=== PATIENT | female | born 1960 | race Caucasian/White ===

== ENCOUNTER → 2018-04-11 15:57 | Outpatient (CLI) | payer BC, SELFPAY ==
[2018-04-11 17:16] LABS: Cholesterol 191 mg/dL (140-199); HDL Cholesterol 44 mg/dL (40-60); LDL Cholesterol Calculated 86 mg/dL (<100); Triglycerides 305 mg/dL (35-150)
[2018-04-11 18:38] LABS: Hemoglobin A1C% w Est Avg Glu 6.2 % (4.0-6.0)
== END ==
PROVIDERS: PCP Family Medicine; Visit Provider Family Medicine
DX: E11.9 Type 2 diabetes mellitus without complications (principal)
CPT/HCPCS: 36415; 80061; 83036

== ENCOUNTER → 2018-06-25 14:18 | Outpatient (CLI) | payer BC, SELFPAY ==
[2018-06-25 15:03] LABS: Alanine Aminotransferase 39 IU/L (9-52); Albumin Globulin Ratio 1.3 (1.0-2.8); Alkaline Phosphatase 77 U/L (38-126); Aspartate Aminotransferase 32 IU/L (14-36); Bilirubin Total 0.4 mg/dL (0.2-1.3); Blood Urea Nitrogen 14 mg/dL (7-17); Calcium 9.7 mg/dL (8.4-10.2); Carbon Dioxide 33 mmol/L (22-32); Chloride 99 mmol/L (98-107); Estimated Glomerular Filt Rate > 60.0 mL/min (>60); Glucose 181 mg/dL (80-110); HEMOLYSIS < 15 (0-50); Potassium 3.5 mmol/L (3.4-5.1); Sodium 138 mmol/L (137-145)
[2018-06-25 15:08] LABS: Add Manual Diff / Slide Review NO; Basophils Percent Auto 1.5 % (0-2); Eosinophils Percent Auto 2.3 % (2-4); Hematocrit 36.3 % (36-46); Hemoglobin 11.9 g/dL (12.0-16.0); Lymphocytes Percent Auto 16.8 % (25-40); Mean Corpuscular HGB Conc 32.9 % (30-36); Mean Corpuscular Hemoglobin 27.1 PG (26-34); Mean Corpuscular Volume 82.5 fL (80-100); Monocytes Percent Auto 6.7 % (3-14); Neutrophils Absolute Auto 6100 /uL (3000-5900); Neutrophils Percent Auto 72.7 % (50-75); Platelet Count 289 X10^3/uL (150-400); Red Cell Distribution Width 15.6 % (11.6-14.8); White Blood Cell Count 8.4 X10^3/uL (4.5-11.0)
== END ==
PROVIDERS: PCP Family Medicine; Visit Provider Internal Medicine Rheumatology
DX: M05.79 Rheumatoid arthritis with rheumatoid factor of multiple sites without organ or systems involvement (principal); Z79.899 Other long term (current) drug therapy
CPT/HCPCS: 36415; 80053; 85025

== ENCOUNTER → 2018-08-15 14:57 | Outpatient (CLI) | payer BC, SELFPAY ==
[2018-08-16 17:23] LABS: Creatinine Urine Random 80.8 mg/dL
[2018-08-16 17:31] LABS: Microalbumi Creatinin Ratio Ur 14.8 ug/mg CR (<30); Microalbumin Urine Random 1.2 mg/dL (0-1.6)
== END ==
PROVIDERS: PCP Family Medicine; Visit Provider Family Medicine
DX: E11.9 Type 2 diabetes mellitus without complications (principal)
CPT/HCPCS: 36415; 82043; 82570; 83036

== ENCOUNTER → 2018-09-24 12:37 | Outpatient (CLI) | payer BC, SELFPAY ==
[2018-09-24 13:30] LABS: Add Manual Diff / Slide Review NO; Basophils Percent Auto 1.5 % (0-2); Eosinophils Percent Auto 1.6 % (2-4); Hematocrit 36.9 % (36-46); Hemoglobin 12.2 g/dL (12.0-16.0); Lymphocytes Percent Auto 23.3 % (25-40); Mean Corpuscular HGB Conc 33.2 % (30-36); Mean Corpuscular Hemoglobin 27.3 PG (26-34); Mean Corpuscular Volume 82.4 fL (80-100); Monocytes Percent Auto 6.4 % (3-14); Neutrophils Absolute Auto 4800 /uL (3000-5900); Neutrophils Percent Auto 67.2 % (50-75); Platelet Count 323 X10^3/uL (150-400); Red Blood Cell Count 4.48 X10^6/uL (4.0-5.2); Red Cell Distribution Width 14.4 % (11.6-14.8); White Blood Cell Count 7.2 X10^3/uL (4.5-11.0)
[2018-09-24 13:42] LABS: Alanine Aminotransferase 38 IU/L (9-52); Albumin Globulin Ratio 1.5 (1.0-2.8); Alkaline Phosphatase 77 U/L (38-126); Aspartate Aminotransferase 25 IU/L (14-36); Bilirubin Total 0.3 mg/dL (0.2-1.3); Blood Urea Nitrogen 18 mg/dL (7-17); Calcium 9.7 mg/dL (8.4-10.2); Carbon Dioxide 30 mmol/L (22-32); Chloride 101 mmol/L (98-107); Estimated Glomerular Filt Rate > 60.0 mL/min (>60); Globulin 2.7 g/dL (1.7-4.1); Glucose 122 mg/dL (80-110); HEMOLYSIS < 15 (0-50); Potassium 3.9 mmol/L (3.4-5.1); Sodium 143 mmol/L (137-145); Total Protein 6.7 g/dL (6.3-8.2)
== END ==
PROVIDERS: Family Provider Family Medicine; PCP Family Medicine; Visit Provider Internal Medicine Rheumatology
DX: M05.79 Rheumatoid arthritis with rheumatoid factor of multiple sites without organ or systems involvement (principal); Z79.899 Other long term (current) drug therapy
CPT/HCPCS: 36415; 80053; 85025

== ENCOUNTER → 2018-12-05 17:10 | Outpatient (CLI) | payer BC, SELFPAY ==
[2018-12-05 18:19] LABS: Hemoglobin A1C% w Est Avg Glu 5.8 % (4.0-6.0)
[2018-12-05 18:57] LABS: Creatinine Urine Random 54.2 mg/dL
[2018-12-05 19:02] LABS: Microalbumi Creatinin Ratio Ur 22.1 ug/mg CR (<30); Microalbumin Urine Random 1.2 mg/dL (0-1.6)
== END ==
PROVIDERS: Family Provider Family Medicine; PCP Family Medicine; Visit Provider Family Medicine
DX: E11.9 Type 2 diabetes mellitus without complications (principal)
CPT/HCPCS: 36415; 82043; 82570; 83036

== ENCOUNTER → 2019-01-10 10:33 | Outpatient (CLI) | payer BC, SELFPAY ==
[2019-01-10 11:18] LABS: Add Manual Diff / Slide Review NO; Basophils Absolute Auto 100 /uL (0-100); Basophils Percent Auto 1.2 % (0-2); Eosinophils Absolute Auto 400 /uL (0-450); Eosinophils Percent Auto 4.1 % (2-4); Hematocrit 40.7 % (36-46); Hemoglobin 13.5 g/dL (12.0-16.0); Lymphocytes Absolute Auto 3100 /uL (1100-4500); Lymphocytes Percent Auto 33.7 % (25-40); Mean Corpuscular HGB Conc 33.2 % (30-36); Mean Corpuscular Hemoglobin 27.7 PG (26-34); Mean Corpuscular Volume 83.4 fL (80-100); Monocytes Absolute Auto 800 /uL (0-900); Monocytes Percent Auto 8.9 % (3-14); Neutrophils Absolute Auto 4800 /uL (1500-7000); Neutrophils Percent Auto 52.1 % (50-75); Platelet Count 229 X10^3/uL (150-400); Red Blood Cell Count 4.88 X10^6/uL (4.0-5.2); Red Cell Distribution Width 14.3 % (11.6-14.8); White Blood Cell Count 9.2 X10^3/uL (4.5-11.0)
[2019-01-10 11:31] LABS: Alanine Aminotransferase 36 IU/L (9-52); Albumin 4.2 g/dL (3.5-5.0); Albumin Globulin Ratio 1.5 (1.0-2.8); Alkaline Phosphatase 77 U/L (38-126); Aspartate Aminotransferase 26 IU/L (14-36); BUN Creatinine Ratio 23.8 (6-22); Bilirubin Total 0.4 mg/dL (0.2-1.3); Blood Urea Nitrogen 19 mg/dL (7-17); Carbon Dioxide 29 mmol/L (22-32); Chloride 100 mmol/L (98-107); Estimated Glomerular Filt Rate > 60.0 mL/min (>60); Globulin 2.8 g/dL (1.7-4.1); Glucose 122 mg/dL (80-110); HEMOLYSIS < 15 (0-50); Potassium 3.5 mmol/L (3.4-5.1); Sodium 139 mmol/L (137-145)
== END ==
PROVIDERS: Family Provider Family Medicine; PCP Family Medicine; Visit Provider Internal Medicine Rheumatology
DX: M05.79 Rheumatoid arthritis with rheumatoid factor of multiple sites without organ or systems involvement (principal); Z79.899 Other long term (current) drug therapy
CPT/HCPCS: 36415; 80053; 85025

== ENCOUNTER → 2019-03-28 09:07 | Outpatient (CLI) | payer BC, SELFPAY ==
[2019-03-28 10:07] LABS: Add Manual Diff / Slide Review NO; Basophils Absolute Auto 100 /uL (0-100); Basophils Percent Auto 1.2 % (0-2); Eosinophils Absolute Auto 300 /uL (0-450); Eosinophils Percent Auto 3.8 % (2-4); Hematocrit 35.9 % (36-46); Lymphocytes Absolute Auto 3900 /uL (1100-4500); Lymphocytes Percent Auto 42.3 % (25-40); Mean Corpuscular HGB Conc 33.4 % (30-36); Mean Corpuscular Hemoglobin 28.5 PG (26-34); Mean Corpuscular Volume 85.5 fL (80-100); Monocytes Absolute Auto 900 /uL (0-900); Monocytes Percent Auto 9.7 % (3-14); Neutrophils Absolute Auto 3900 /uL (1500-7000); Platelet Count 213 X10^3/uL (150-400); Red Cell Distribution Width 14.3 % (11.6-14.8); White Blood Cell Count 9.2 X10^3/uL (4.5-11.0)
[2019-03-28 10:11] LABS: Alanine Aminotransferase 44 IU/L (9-52); Albumin Globulin Ratio 1.5 (1.0-2.8); Alkaline Phosphatase 69 U/L (38-126); Aspartate Aminotransferase 27 IU/L (14-36); BUN Creatinine Ratio 17.5 (6-22); Bilirubin Total 0.5 mg/dL (0.2-1.3); Blood Urea Nitrogen 14 mg/dL (7-17); Calcium 9.3 mg/dL (8.4-10.2); Carbon Dioxide 30 mmol/L (22-32); Chloride 101 mmol/L (98-107); Estimated Glomerular Filt Rate > 60.0 mL/min (>60); Globulin 2.7 g/dL (1.7-4.1); Glucose 121 mg/dL (80-110); HEMOLYSIS < 15 (0-50); Potassium 3.1 mmol/L (3.4-5.1); Sodium 140 mmol/L (137-145); Total Protein 6.7 g/dL (6.3-8.2)
== END ==
PROVIDERS: PCP Family Medicine; Visit Provider Internal Medicine Rheumatology
DX: M05.79 Rheumatoid arthritis with rheumatoid factor of multiple sites without organ or systems involvement (principal); Z79.899 Other long term (current) drug therapy
CPT/HCPCS: 36415; 80053; 85025

== ENCOUNTER → 2019-04-09 08:45 | Outpatient (CLI) | payer BC, SELFPAY ==
[2019-04-09 09:51] LABS: Cholesterol 186 mg/dL (140-199); HDL Cholesterol 36 mg/dL (40-60); LDL Cholesterol Calculated 79 mg/dL (<100); Triglycerides 354 mg/dL (35-150)
[2019-04-09 09:52] LABS: Creatinine Urine Random 63.7 mg/dL
[2019-04-09 09:58] LABS: Microalbumi Creatinin Ratio Ur 12.5 ug/mg CR (<30); Microalbumin Urine Random 0.8 mg/dL (0-1.6)
== END ==
PROVIDERS: PCP Family Medicine; Visit Provider Family Medicine
DX: E11.9 Type 2 diabetes mellitus without complications (principal)
CPT/HCPCS: 36415; 80061; 82043; 82570; 83036

== ENCOUNTER → 2019-07-02 09:28 | Outpatient (CLI) | payer BC, SELFPAY ==
[2019-07-02 10:40] LABS: Add Manual Diff / Slide Review NO; Basophils Absolute Auto 200 /uL (0-100); Basophils Percent Auto 1.8 % (0-2); Eosinophils Absolute Auto 300 /uL (0-450); Eosinophils Percent Auto 2.6 % (2-4); Hematocrit 38.6 % (36-46); Lymphocytes Absolute Auto 2500 /uL (1100-4500); Lymphocytes Percent Auto 22.9 % (25-40); Mean Corpuscular HGB Conc 33.6 % (30-36); Mean Corpuscular Hemoglobin 28.4 PG (26-34); Mean Corpuscular Volume 84.4 fL (80-100); Monocytes Absolute Auto 1000 /uL (0-900); Monocytes Percent Auto 8.9 % (3-14); Neutrophils Absolute Auto 6900 /uL (1500-7000); Neutrophils Percent Auto 63.8 % (50-75); Platelet Count 244 X10^3/uL (150-400); Red Blood Cell Count 4.57 X10^6/uL (4.0-5.2); Red Cell Distribution Width 14.6 % (11.6-14.8); White Blood Cell Count 10.8 X10^3/uL (4.5-11.0)
[2019-07-02 11:07] LABS: Alanine Aminotransferase 31 IU/L (9-52); Albumin 4.3 g/dL (3.5-5.0); Albumin Globulin Ratio 1.3 (1.0-2.8); Alkaline Phosphatase 82 U/L (38-126); Aspartate Aminotransferase 30 IU/L (14-36); BUN Creatinine Ratio 23.8 (6-22); Bilirubin Total 0.4 mg/dL (0.2-1.3); Blood Urea Nitrogen 19 mg/dL (7-17); Calcium 10.1 mg/dL (8.4-10.2); Carbon Dioxide 30 mmol/L (22-32); Chloride 102 mmol/L (98-107); Estimated Glomerular Filt Rate > 60.0 mL/min (>60); Globulin 3.3 g/dL (1.7-4.1); Glucose 121 mg/dL (80-110); HEMOLYSIS 17 (0-50); Potassium 4.1 mmol/L (3.4-5.1); Sodium 139 mmol/L (137-145); Total Protein 7.6 g/dL (6.3-8.2)
== END ==
PROVIDERS: Family Provider Family Medicine; PCP Family Medicine; Visit Provider Internal Medicine Rheumatology
DX: M05.79 Rheumatoid arthritis with rheumatoid factor of multiple sites without organ or systems involvement (principal); Z79.899 Other long term (current) drug therapy
CPT/HCPCS: 36415; 80053; 85025

== ENCOUNTER → 2019-08-19 15:51 | Outpatient (CLI) | payer BC, SELFPAY ==
[2019-08-19 17:10] LABS: Hemoglobin A1C% w Est Avg Glu 5.8 % (4.0-6.0)
== END ==
PROVIDERS: PCP Family Medicine; Visit Provider Family Medicine
DX: E11.9 Type 2 diabetes mellitus without complications (principal)
CPT/HCPCS: 36415; 83036

== ENCOUNTER 2019-12-29 18:12 | Emergency (ER) | payer BC, SELFPAY ==
[2019-12-29 18:21] VITALS: BP 147/84; PULSE 86; RESP 16; TEMP 36.8; O2SAT 97; BMI 30.2
--- NOTE | 2019-12-29 18:26 | DI.RAD.S_ITS ---
PROCEDURE: XR SHOULDER LT MIN 2V INDICATIONS: tripped and fell, landing on left shoulder , now w/pain TECHNIQUE: 3 views of the shoulder were acquired. COMPARISON: None. FINDINGS: Bones: No fractures or dislocations. No suspicious bony lesions. Visualized ribs appear intact. Age-appropriate bony degenerative changes are seen. Soft tissues: Calcific tendinopathy is seen. The visualized lung demonstrates an unremarkable appearance. IMPRESSION: No displaced fractures are seen on these plain films. If there is focal tenderness, or other clinical concern for a fracture not seen on these images in this patient with a given history of trauma, please consider a dedicated CT or a short-term followup plain film series (in 1-2 weeks) for further evaluation. Dictated by: Daniel Moses M.D. on 12/29/2019 at 19:07 Approved by: Daniel Moses M.D. on 12/29/2019 at 19:09
--- NOTE | 2019-12-29 20:15 | ED_ITS ---
HPI - Extremity Injury (Upper) <FLACO Harrington - Last Filed: 12/29/19 20:28> General Chief Complaint: Extremity Injury, Upper Stated Complaint: left shoulder injury Time Seen by Provider: 12/29/19 20:00 Mode of arrival: Ambulatory History of Present Illness HPI narrative: 59yo female presents to the emergency department for left shoulder pain after tripping and falling this afternoon. Patient states she landed on her left shoulder and reportspain is a dull aching 5/10 as worse with palpation and movement. Patient states she took some Tylenol and applied ice which has decreased her shoulder pain. Patient denies any significant swelling, redness, numbness, tingling, head trauma, other injuries, clavicle pain, nausea, vomiting, diarrhea, chest pain, shortness of breath, dizziness, or other concerns. Related Data Home Medications Medication Instructions Recorded Confirmed ACETAMINOPHEN (TYLENOL) 0 PO *UK DOSE/FREQUENCY #0 01/22/07 FOLIC ACID (Folate) 0 PO * UK DOSE/FREQUENCY #0 01/22/07 MULTIVITAMIN (Multivitamin 0 PO * UK DOSE/FREQUENCY #0 01/22/07 -) Methotrexate - 0 PO * UK DOSE/STRENGTH #0 01/22/07 (Rheumatrex) PredniSONE (Deltasone) 0 PO * UK DOSE/FREQUENCY #0 01/22/07 Allergies Allergy/AdvReac Type Severity Reaction Status Date / Time hydroxychloroquine AdvReac Verified 12/29/19 18:28 [From Plaquenil] minocycline AdvReac Verified 12/29/19 18:28 Penicillins AdvReac Verified 12/29/19 18:28 vit d AdvReac Uncoded 12/29/19 18:28 Review of Systems <FLACO Harrington - Last Filed: 12/29/19 20:28> Review of Systems Narrative: REVIEW OF SYSTEMS: GENERAL: Denies fever or chills. HENT: No head trauma. EYES: No double vision or vision loss. CARDIOVASCULAR: No chest pain or syncope. RESPIRATORY: No shortness of breath or cough. GASTROINTESTINAL: No nausea, vomiting, diarrhea, or constipation. MUSCULOSKELETAL: Complains of left shoulder pain, see HPI. INTEGUMENTARY: No rash. NEURO: No numbness, tingling. PSYCH: No behavior or mood changes. Patient History <FLACO Harrington - Last Filed: 12/29/19 20:28> Medical History No significant medical problems (Acute) Social History Smoking Status: Never smoker Smoking Status: Never smoker Alcohol type: wine Substance Use Type: does not use Exam <FLACO Harrington - Last Filed: 12/29/19 20:28> Initial Vital Signs Initial Vital Signs: Vital Signs Temperature 98.2 F 12/29/19 18:21 Pulse Rate 86 12/29/19 18:21 Respiratory Rate 16 12/29/19 18:21 Blood Pressure 147/84 H 12/29/19 18:21 Pulse Oximetry 97 12/29/19 18:21 PHYSICAL EXAMINATION: GENERAL: Well groomed, alert, and cooperative. Answers questions promptly and appropriately. Vital signs noted. HENT: Normocephalic, atraumatic. EYES: Symmetrical, sclera white, no periorbital swelling. CARDIOVASCULAR: S1 and S2 sounds normal. Regular rate and rhythm, no murmurs, clicks, or bruits. No pedal edema. RESPIRATORY: Normal respiratory rate, trachea midline, airway patent. No stridor, nasal flaring or accessory muscle use. Lungs are clear in all heath. MUSCULOSKELETAL: Slight tenderness to palpation of left deltoid, decreased internal and external rotation due to pain, decreased extension due to pain. Equal deltoid, forearm, and fisher pot strength bilaterally. No significant ecchymosis, erythema, or swelling. No tenderness to palpation of left clavicle. Normal gait and coordination. Equal tone and mass bilaterally. No spinal tenderness or deformities. EXTREMITIES: CMS intact. No pedal edema. SKIN: Warm, dry, soft, appropriate color for ethnicity. No lesions, rashes, or wounds. NEURO: Alert and Oriented X 3. No sensory deficits. PSYCH: Appropriate affect and mood. <Bal Grider DO - Last Filed: 12/29/19 20:33> Initial Vital Signs Initial Vital Signs: Vital Signs Temperature 98.2 F 12/29/19 18:21 Pulse Rate 86 12/29/19 18:21 Respiratory Rate 16 12/29/19 18:21 Blood Pressure 147/84 H 12/29/19 18:21 Pulse Oximetry 97 12/29/19 18:21 Course <FLACO Harrington - Last Filed: 12/29/19 20:28> Course Course Narrative: Patient was given ice in the emergency department which improved her pain level. Orders Ordered: ED Orders 12/29/19 18:26 XR shoulder LT min 2V Stat Vital Signs Vital signs: Vital Signs - 8 hr 12/29/19 18:21 Temperature 98.2 F Pulse Rate 86 Respiratory Rate 16 Blood Pressure 147/84 H Pulse Oximetry 97 <Bal Grider DO - Last Filed: 12/29/19 20:33> Orders Ordered: ED Orders 12/29/19 18:26 XR shoulder LT min 2V Stat Vital Signs Vital signs: Vital Signs - 8 hr 12/29/19 18:21 Temperature 98.2 F Pulse Rate 86 Respiratory Rate 16 Blood Pressure 147/84 H Pulse Oximetry 97 MDM - Extremity Injury (Upper) <FLACO Harrington - Last Filed: 12/29/19 20:28> Medical Records Attestation: I reviewed the patient's medical records. Lab Data Attestation: I reviewed the patient's lab results. Imaging Data Extremity x-ray #1: Radiologist's Impression: [address] [address] XRay Report Signed Patient: Barbara Maddox [facility]#: [id number] : 8Acct:[id number] Age/Sex: 59 / FDate of Service: 12/29/19 Loc: ED Accession Number: [id number] Procedure: XR shoulder LT min 2V Ordering Provider: Bal Grider D.O. PROCEDURE: XR SHOULDER LT MIN 2V INDICATIONS: tripped and fell, landing on left shoulder , now w/pain TECHNIQUE: 3 views of the shoulder were acquired. COMPARISON: None. FINDINGS: Bones: No fractures or dislocations. No suspicious bony lesions. Visualized ribs appear intact. Age-appropriate bony degenerative changes are seen. Soft tissues: Calcific tendinopathy is seen. The visualized lung demonstrates an unremarkable appearance. IMPRESSION: No displaced fractures are seen on these plain films. If there is focal tenderness, or other clinical concern for a fracture not seen on these images in this patient with a given history of trauma, please consider a dedicated CT or a short-term followup plain film series (in 1-2 weeks) for further evaluation. Dictated by: Daniel Moses M.D. on 12/29/2019 at 19:07 Approved by: Daniel Moses M.D. on 12/29/2019 at 19:09 [facility] Narrative Medical decision making narrative: 59-year-old female presenting for left shoulder pain after falling on her shoulder. X-rays negative for fractures. Differential includes contusion, rotator cuff injury, or muscle strain. Patient is neurovascular intact. She is encouraged to follow up with her primary care provider in 2 weeks for further evaluation and further testing if indicated. She was encouraged to continue with Tylenol, occasional dose of ibuprofen, and ice as needed. Patient agrees with plan of care and verbalized understanding. Discharge Plan Departure Patient Disposition: Home Clinical Impression: Acute pain of left shoulder Instructions: DI for Shoulder Pain Activity Restrictions/Additional Instructions: Thank you for entrusting me with your care today. As discussed, your x-rays negative for any fractures. I suggest using Tylenol and or ibuprofen as needed for pain. You may use ice as needed for comfort. Follow up with your primary care provider in 1-2 weeks for further evaluation if your symptoms continue. Return emergency department for new or worsening symptoms such as syncope, chest pain, shortness of breath, or other concerns. Prescriptions: No Action PredniSONE (Deltasone) 0 PO * UK DOSE/FREQUENCY Qty: 0 RF: 0 ACETAMINOPHEN (TYLENOL) 0 PO *UK DOSE/FREQUENCY Qty: 0 RF: 0 FOLIC ACID (Folate) 0 PO * [place] DOSE/FREQUENCY Qty: 0 RF: 0 MULTIVITAMIN (Multivitamin -) 0 PO * [place] DOSE/FREQUENCY Qty: 0 RF: 0 Methotrexate - (Rheumatrex) 0 PO * [place] DOSE/STRENGTH Qty: 0 RF: 0 Referrals: Bonnie Arrieta MD [Primary Care Provider] - <Bal Grider, DO - Last Filed: 12/29/19 20:33> Sign Out Provider Sign Out Attestation: Dr Grider Co-Sign Statement: I was available for consultation during this patient's emergency department visit. This chart is signed by myself for administrative purposes only. I did not have direct co ntact with this patient during this visit. They were seen independently by the APC.
[2019-12-29 20:20] VITALS: PULSE 80
[2019-12-29 20:38] VITALS: PULSE 81; RESP 16; O2SAT 96
== END 2019-12-29 20:39 | disposition home or self-care (01) ==
PROVIDERS: Emergency Provider Nurse Practitioner; PCP Family Medicine; Referring Provider Chiropractor
DX: M25.512 Pain in left shoulder (principal); W19.XXXA Unspecified fall, initial encounter
CPT/HCPCS: 73030; 99283

== ENCOUNTER → 2020-05-21 09:42 | Outpatient (CLI) | payer BC, SELFPAY ==
[2020-05-21 10:42] LABS: Add Manual Diff / Slide Review NO; Basophils Absolute Auto 100 /uL (0-100); Basophils Percent Auto 1.2 % (0-2); Eosinophils Absolute Auto 200 /uL (0-450); Eosinophils Percent Auto 2.8 % (2-4); Hematocrit 36.5 % (36-46); Hemoglobin 12.2 g/dL (12.0-16.0); Lymphocytes Absolute Auto 3500 /uL (1100-4500); Lymphocytes Percent Auto 39.9 % (25-40); Mean Corpuscular HGB Conc 33.4 % (30-36); Mean Corpuscular Hemoglobin 28.7 PG (26-34); Mean Corpuscular Volume 85.8 fL (80-100); Monocytes Absolute Auto 800 /uL (0-900); Monocytes Percent Auto 9.7 % (3-14); Neutrophils Absolute Auto 4000 /uL (1500-7000); Neutrophils Percent Auto 46.4 % (50-75); Platelet Count 251 X10^3/uL (150-400); Red Blood Cell Count 4.26 X10^6/uL (4.0-5.2); Red Cell Distribution Width 14.3 % (11.6-14.8); White Blood Cell Count 8.7 X10^3/uL (4.5-11.0)
[2020-05-21 11:10] LABS: Erythrocyte Sedimentation Rate 31 MM/HR (0-20)
[2020-05-21 11:25] LABS: Creatinine Urine Random 153.3 mg/dL
[2020-05-21 11:26] LABS: Alanine Aminotransferase 29 IU/L (<35); Albumin Globulin Ratio 1.6 (1.0-2.8); Alkaline Phosphatase 77 U/L (38-126); Aspartate Aminotransferase 28 IU/L (14-36); BUN Creatinine Ratio 19.2 (6-22); Bilirubin Total 0.5 mg/dL (0.2-1.3); Blood Urea Nitrogen 15 mg/dL (7-17); C-Reactive Protein Quant 1.2 mg/dL (<1.0); Calcium 10.3 mg/dL (8.4-10.2); Carbon Dioxide 28 mmol/L (22-32); Chloride 101 mmol/L (98-107); Cholesterol 206 mg/dL (140-199); Estimated Glomerular Filt Rate > 60.0 mL/min (>60); Globulin 2.5 g/dL (1.7-4.1); Glucose 105 mg/dL (80-110); HDL Cholesterol 33 mg/dL (40-60); HEMOLYSIS < 15 (0-50); Potassium 3.5 mmol/L (3.4-5.1); Sodium 137 mmol/L (137-145); Total Protein 6.5 g/dL (6.3-8.2)
[2020-05-21 11:27] LABS: Microalbumi Creatinin Ratio Ur 18.9 ug/mg CR (<30); Microalbumin Urine Random 2.9 mg/dL (0-1.6)
[2020-05-21 11:45] LABS: Triglycerides 623 mg/dL (35-150)
== END ==
PROVIDERS: PCP Family Medicine; Referring Provider Internal Medicine Rheumatology; Visit Provider Internal Medicine Rheumatology
DX: M05.79 Rheumatoid arthritis with rheumatoid factor of multiple sites without organ or systems involvement (principal); E11.9 Type 2 diabetes mellitus without complications
CPT/HCPCS: 36415; 80053; 80061; 82043; 82570; 83036; 85025; 85651; 86140